=== PATIENT | female | born 1995 | race Two or more races ===

== ENCOUNTER 2022-12-27 07:21 | Emergency (ER) | payer BC ==
[~2022-12-27] VITALS: Ht 177.8 cm; Wt 74.4 kg
--- NOTE | 2022-12-27 08:32 | NUR ---
RECEVED PT WALKING IN FROM HOME C/O CARE SEEKINESS AND NUBNESS ON RT SIDE UPPER AND LOWER EXTRAMITY
--- NOTE | 2022-12-27 08:38 | NUR ---
CALLED CODE STROKE.
--- NOTE | 2022-12-27 08:40 | NUR ---
[facility] 0
[2022-12-27] MEDS ORDERED: IOHEXOL-350 100 ML VIAL IV ONE (08:43)
[2022-12-27] MEDS ORDERED: CT SWABBABLE VALVE TRANS SET 1 EA INFUS.SET MC ONE (08:43)
[2022-12-27] MEDS ORDERED: IV NS 0.9% 250 ML IV ONE (08:43)
--- NOTE | 2022-12-27 08:43 | NUR ---
PT TO CT VIA [employer].
--- NOTE | 2022-12-27 08:48 | NUR ---
[facility] [phone] STEVE MOON
[2022-12-27 08:50] LABS: BASOPHILS # (AUTO) 0.1 K/uL (0.0-0.2); BASOPHILS % (AUTO) 0.8 % (0.0-2.0); EOSINOPHILS % (AUTO) 0.2 % (0.0-6.0); HEMATOCRIT 37 % (33-45); LYMPHOCYTES # (AUTO) 1.6 K/uL (0.8-4.8); LYMPHOCYTES % (AUTO) 25.6 % (20.0-44.0); MEAN CORPUSCULAR HGB CONC 33 g/dl (31.0-36.0); MEAN CORPUSCULAR VOLUME 94 fL (82-100); MONOCYTES # (AUTO) 0.6 K/uL (0.1-1.30); MONOCYTES % (AUTO) 8.8 % (2.0-12.0); NEUTROPHILS # (AUTO) 4.1 K/uL (1.8-8.9); NEUTROPHILS % (AUTO) 64.6 % (43.0-81.0); PLATELET COUNT (AUTO) 364 K/uL (150-450); RED BLOOD CELL COUNT(AUTO) 3.92 MIL/uL (4.0-5.2); WHITE BLOOD COUNT (AUTO) 6.3 K/uL (4.3-11.0)
[2022-12-27 08:55] LABS: CALCIUM, SERUM 8.8 mg/dL (8.5-10.1); CARBON DIOXIDE 27 mmol/L (21-32); CHLORIDE 102 mmol/L (98-107); CREATININE 0.9 mg/dL (0.6-1.3); GLUCOSE 99 mg/dL (74-106); POTASSIUM 3.8 mmol/L (3.5-5.1); SODIUM SERUM 138 mmol/L (136-145); UREA NITROGEN, BLOOD 8 mg/dL (7-18)
--- NOTE | 2022-12-27 09:01 | NUR ---
PT BACK FROM CT.
--- NOTE | 2022-12-27 09:02 | NUR ---
TELE-NEUROLOGY AT BED SIDE SPOOKING WITH PT
[2022-12-27] MEDS ORDERED: METOCLOPRAMIDE HCL 10 MG/2 ML VIAL IV ONE (09:30)
[2022-12-27] MEDS ORDERED: METOCLOPRAMIDE HCL 10 MG/2 ML VIAL ONE (09:56)
[2022-12-27] MEDS ORDERED: IV NS 0.9% 1,000 ML BAG IV ONE (10:00)
--- NOTE | 2022-12-27 10:10 | NUR ---
NO WEEKNESS NO PAIN NIH NONE ZERO 0
--- NOTE | 2022-12-27 11:00 | NUR ---
IV removed. Catheter intact and site benign. Pressure and 4x4 applied to site. No bleeding noted. NO WWKNESS NIH 0
--- NOTE | 2022-12-27 11:02 | NUR ---
Patient does not wish to proceed with medical care recommended by ( ). Patient given information related to possible complications, up to and including , which could occur as a result of leaving the hospital at this time. Patient verbalizes understanding of risks involved due to leaving against medical advice. Patient has signed AMA form.
--- NOTE | 2022-12-27 11:05 | NUR ---
Tank alberto in [facility] - 12/27/22 at 1107 by HEENA JANESSA COLEMAN [phone]
[2022-12-27 11:23] VITALS: BP 105/74
== END 2022-12-27 11:24 | disposition left against medical advice (07) ==
LOC: ER 07:35
DX: R53.1 Weakness (principal); R11.10 Vomiting, unspecified; J45.909 Unspecified asthma, uncomplicated; Z88.0 Allergy status to penicillin; Z60.2 Problems related to living alone
CPT/HCPCS: 99285; 70498; 96374; 71045; 96361; 93005; 70496; 85025; 80048; 36415; 84484; 85730; 82962; 70450; J2765; J7030; J7050; Q9967